=== PATIENT | female | born 1965 | race Hispanic/Latino ===

== ENCOUNTER 2025-01-12 16:05 | Emergency (ER) | payer OTHER ==
[2025-01-12] MEDS ORDERED: ACETAMINOPHEN 500 MG TAB ONE (16:26)
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
[2025-01-12] MEDS ORDERED: KETOROLAC 30 MG/ML INJ ONE (17:29)
[2025-01-12] MEDS ORDERED: HYDROCODONE/APAP 7.5/325 MG TAB ONE (17:29)
[2025-01-12] MEDS ORDERED: methocarbamoL 750 MG TAB ONE (17:29)
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
[2025-01-12 18:35] VITALS: TEMP 97
[2025-01-12 18:36] VITALS: BP 142/77; O2SAT 98
== END 2025-01-12 18:29 | disposition home or self-care (01) ==
LOC: ER 16:05
DX: S20.212A Contusion of left front wall of thorax, initial encounter (principal); R51.9 Headache, unspecified; V49.9XXA Car occupant (driver) (passenger) injured in unspecified traffic accident, initial encounter
CPT/HCPCS: 70450; 72125; 96372; 99284